=== PATIENT | female | born 1960 | race Hispanic/Latino ===

== ENCOUNTER 2018-06-19 09:28 | Outpatient (CLI) | payer MEDICARE, OTHER ==
--- NOTE | 2018-06-19 10:45 | RAD ---
RIGHT KNEE FOUR VIEWS: History: Medial right knee pain. FINDINGS/IMPRESSION: No fracture, dislocation, or bony destruction is seen. Bones appear osteopenic. No significant osteop hytosis is seen. There is joint space narrowing in the medial tibial compartment. POS: JOSE DE JESUS
--- NOTE | 2018-06-19 10:46 | RAD ---
RIGHT HIP TWO VIEWS: History: 57-year-old female with history of right hip pain without injury. Comparison: 01-15-09 FINDINGS: Right total hip replacement changes. No dislocation or periprosthetic fracture. IMPRESSION: Right total hip replacement. No acute process. POS: ARASH
== END 2018-06-19 09:29 | disposition home or self-care (01) ==
LOC: BICRAD 09:28
PROVIDERS: ATTEND Family Medicine
DX: M25.561 Pain in right knee (principal); M25.551 Pain in right hip; Z96.641 Presence of right artificial hip joint

== ENCOUNTER 2019-01-08 15:50 | Emergency (ER) | payer MEDICARE, MEDICAID ==
[2019-01-08] MEDS ORDERED: Ibuprofen 200 MG TAB ONE (16:37)
== END 2019-01-08 16:43 | disposition home or self-care (01) ==
LOC: ERS 15:50
DX: S20.212A Contusion of left front wall of thorax, initial encounter (principal); M81.0 Age-related osteoporosis without current pathological fracture; M32.9 Systemic lupus erythematosus, unspecified; F17.210 Nicotine dependence, cigarettes, uncomplicated; W19.XXXA Unspecified fall, initial encounter
CPT/HCPCS: 99283

== ENCOUNTER 2019-01-10 14:46 | Outpatient (CLI) | payer MEDICARE, MEDICAID ==
--- NOTE | 2019-01-10 15:35 | RAD ---
TWO VIEWS LEFT RIBS: 01/10/19 PROVIDED CLINICAL HISTORY: Chest pain status post injury. FINDINGS: No evidence for displaced left sided rib fracture, pleural fluid or pneumothorax. IMPRESSION: As above. POS: C
== END 2019-01-10 14:47 | disposition home or self-care (01) ==
LOC: BICRAD 14:46
PROVIDERS: ATTEND Family Medicine
DX: S20.12 Blister (nonthermal) of breast (principal)

== ENCOUNTER 2020-07-22 15:46 | Outpatient (CLI) | payer MEDICARE, OTHER ==
--- NOTE | 2020-07-22 16:33 | RAD ---
Exam: XR Knee Rt 4 View STANDARD HISTORY: Multiple joint pain. Patient fell 2 weeks ago. Medial right knee pain. COMPARISON: 06/19/2018. FINDINGS: No acute fracture, dislocation, or other acute osseous abnormality is identified. There is osteopenia again present. Views of the right knee are unchanged compared to prior study. IMPRESSION: Osteopenia without acute osseous abnormality right knee.
--- NOTE | 2020-07-22 16:36 | RAD ---
Exam:Right hip 2 views HISTORY: Pain. COMPARISON: None FINDINGS: Uncomplicated right hip arthroplasty. No perihardware lucency. No acute fractures. Visualiz ed bony pelvis is intact. IMPRESSION: No radiographic abnormality.
--- NOTE | 2020-07-22 16:40 | RAD ---
EXAM: XR Lumbar Spine 2 Or 3 View DATE: 07/22/2020 4:00 PM INDICATION: Low back pain COMPARISON: Right hip radiograph dated June 19, 2018 and DEXA scan dated March 21, 2016 FINDING: There is a severe central superior and inferior endplate compression abnormalities of L4 of undetermined echogenicity. This is new from 2015 and 2017. There is diffuse osteopenia. There are vascular ossifications of the splenic artery. There are cholecystectomy clips in the right upper quad rant. There is a right total hip arthroplasty. There is mild multilevel disc degenerative disease. There is grade 1 anterolisthesis of L5 on S1. IMPRESSION: 1. Age-indeterminate superior and inferior central endplate compression abnormality of L4. Bone scan may be helpful to evaluate acute versus chronic compression abnormality. 2. Mild lumbar spondylosis. 3. Diffuse osteopenia. 4. Grade 1 anterolisthesis of L5 on S1.
--- NOTE | 2020-07-22 16:50 | RAD ---
EXAM: XR Pelvis AP STANDARD PROVIDED CLINICAL HISTORY: Multiple joint pains. COMPARISON: None FINDINGS: A right total hip prosthesis is noted in place. No hardware complication is seen. There is left hip j oint osteoarthritis with narrowing of the joint space. No fracture or dislocation is identified. Few tiny phleboliths overlie the pelvis. IMPRESSION: 1. No acute osseous abnormality. 2. 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
== END 2020-07-22 15:47 | disposition home or self-care (01) ==
LOC: BICRAD 15:46
PROVIDERS: ATTEND Family Medicine
DX: M25.50 Pain in unspecified joint (principal); M16.12 Unilateral primary osteoarthritis, left hip; M47.816 Spondylosis without myelopathy or radiculopathy, lumbar region; M43.17 Spondylolisthesis, lumbosacral region; M85.88 Other specified disorders of bone density and structure, other site; M85.861 Other specified disorders of bone density and structure, right lower leg; Z91.81 History of falling
CPT/HCPCS: 72100; 72170

== ENCOUNTER 2020-09-04 13:03 | Outpatient (CLI) | payer MEDICARE, MEDICAID ==
--- NOTE | 2020-09-04 13:59 | MRI ---
MRI lumbar spine noncontrast: HISTORY: Compression fracture of L4 vertebra. Patient fell in May 2020. Low back pain. COMPARISON: None Correlation: Lumbar spine radiograph series 07/22/2020 FINDINGS: There is severe loss of vertebral body height in the midportion the L4 vertebral body. Asso ciated retropulsion. Overall there is appropriate T1 marrow signal intensity lumbar vertebra. Lumbar spine vertebral body height is maintained at L1, L2, L3 and L5. Throughout the lumbar spine, t here is no significant STIR hyperintensity suggest ligamentous injury or acute fracture. Appropriate signal intensity of the paraspinal muscles. Appropriate signal intensity visualized solid organs Conus medullaris terminates at the lower aspect of L1. T12-L1:Adequate disc hydration. No posterior disc abnormalities. No significant central canal stenosi s or significant neural foraminal narrowing L1-L2:Adequate disc hydration. No posterior disc abnormality. No significant central canal stenosis o r significant neural foraminal narrowing L2-L3:Adequate disc hydration. No posterior disc abnormality. No significant central canal stenosis o r significant neural foraminal narrowing L3-L4:Adequate disc hydration. No significant posterior disc abnormalities. Significant central canal stenosis or significant neural foraminal narrowing L4 vertebral body: Mild to moderate central canal stenosis secondary to retropulsion L4-L5:Adequate disc hydration. No significant posterior disc abnormality. No significant central anders l stenosis. There is mild bilateral neural foraminal narrowing. There is bilateral facet hypertrophy. L5-S1:Disc desiccation with mild loss of disc space height. Broad-based disc bulge. Mild central anders l stenosis. Mild bilateral neural foraminal narrowing Spondylolisthesis: L5-S1: 4.7 mm of anterolisthesis of L5 upon S1. IMPRESSION: 1. Severe loss of vertebral body height the midportion the L4 vertebral body with retropulsion. There is mild to moderate central canal stenosis, secondary to retropulsion. 2. No evidence of T2 or STIR hyperintensity to suggest an acute compression fracture of the lumbar sp ine. Clinical correlation is essential. 3. Central canal stenosis and neural foramina as detailed above. 4. Grade 1 anterolisthesis of L5 upon S1 Transcribed Date/Time: 09/04/2020 2:16 PM
== END 2020-09-04 13:04 | disposition home or self-care (01) ==
LOC: BICMRI 13:03
PROVIDERS: ATTEND Family Medicine
DX: S32.040A Wedge compression fracture of fourth lumbar vertebra, initial encounter for closed fracture (principal); M48.061 Spinal stenosis, lumbar region without neurogenic claudication; M43.17 Spondylolisthesis, lumbosacral region
CPT/HCPCS: 72148

== ENCOUNTER 2020-11-13 13:25 | Outpatient (CLI) | payer MEDICARE, MEDICAID | END 2020-11-13 13:26 | disposition home or self-care (01) | LOC: BICMAMMO 13:25 | PROVIDERS: ATTEND Internal Medicine Rheumatology | DX: M81.0 Age-related osteoporosis without current pathological fracture (principal) | CPT/HCPCS: 77080 ==

== ENCOUNTER 2022-11-17 15:07 | Outpatient (CLI) | payer MEDICARE, MEDICAID | END 2022-11-17 15:08 | disposition home or self-care (01) | LOC: BICRAD 15:07 | PROVIDERS: ATTEND Family Medicine | DX: M25.562 Pain in left knee (principal); M25.552 Pain in left hip; R10.2 Pelvic and perineal pain; M16.12 Unilateral primary osteoarthritis, left hip | CPT/HCPCS: 72170 ==